=== PATIENT | female | born 1960 | race Caucasian/White ===

== ENCOUNTER 2017-06-30 07:08 | Day surgery (SDC) | payer BC ==
[2017-06-30] MEDS ORDERED: PROPOFOL 10 MG/ML VIAL IV ONE (14:27)
[2017-06-30] MEDS ORDERED: LIDOCAINE 2% MDV (20MG/ML) 20ML VIAL IV ONE (14:27)
[2017-06-30] MEDS ORDERED: FENTANYL PF 100MCG/2ML VIAL IV ONE (14:27)
--- NOTE | 2017-07-03 12:21 | Operative Note ---
DATE OF SURGERY: 06/30/2017 SURGEON: Fiorella Westfall MD OPERATION: ESOPHAGOGASTRODUODENOSCOPY. INDICATIONS: This is a 57-year-old female with a history of epigastric pain who presented for esophagogastroduodenoscopy. POSTOPERATIVE DIAGNOSES: 1. Normal esophagus. 2. Diffuse gastritis. 3. Normal duodenum. ANESTHESIA: Sedation is per Anesthesia. Pulse oximetry was monitored throughout the procedure to maintain O2 saturation of 90% or greater. Supplemental oxygen was administered via nasal cannula. Cardiac and vital signs were monitored throughout the duration of the procedure, and they were stable. The procedure of esophagogastroduodenoscopy and risks and benefits of the procedure, including the risk of bleeding and perforation, among others, were explained to the patient who voiced understanding and desired to have the procedure done. Physical examination was performed, and the patient was found stable for sedation. PROCEDURE: The patient was placed in the left lateral position. Sedation was initiated. A plastic bite block was inserted into the oral cavity. The Olympus [id number] gastroscope was introduced into the oral cavity and advanced to the proximal esophagus without difficulty. The esophageal mucosa was carefully examined upon introduction of the gastroscope. The proximal, mid, and distal esophageal mucosa appeared normal. The gastroscope was then advanced into the stomach, and surveillance of the stomach revealed diffuse erythema along the gastric body and antrum but no ulcers were noted. The gastroscope was then advanced to the descending duodenum without difficulty. The duodenal bulb and descending duodenum appeared normal. The gastroscope was then withdrawn while carefully examining the gastric and esophageal mucosa. No other lesions noted. Multiple duodenal and gastric biopsies were obtained. She remained with stable vital signs and was transferred to the recovery room. RECOMMENDATIONS: 1. The patient is to continue on her Protonix 40 mg p.o. daily. 2. We will follow up on the biopsies. 3. I will see her back in the office as needed. Thank you for allowing me to participate in the care of your patient. CC: Dr. Madiha MILLER
== END 2017-06-30 09:00 | disposition home or self-care (01) ==
LOC: HOP 07:08
PROVIDERS: ATTEND Internal Medicine Gastroenterology
DX: D51.0 Vitamin B12 deficiency anemia due to intrinsic factor deficiency (principal); C16.9 Malignant neoplasm of stomach, unspecified; K29.70 Gastritis, unspecified, without bleeding; E11.9 Type 2 diabetes mellitus without complications
CPT/HCPCS: 43235; 00740; J3010